=== PATIENT | female | born 1935 | race Caucasian/White ===

== ENCOUNTER 2019-10-01 16:09 | Observation (INO) ==
[2019-10-01 20:12] LABS: Basophils % 0.4 %; Hematocrit 29.8 % (35.3-44.9); Hemoglobin 9.9 g/dL (11.5-15.4); Immature Granulocytes % 0.6 % (0-4); Lymphocytes # 0.6 K/mcL (0.6-4.6); Lymphocytes % 13.2 %; Mean Corpuscular HGB Conc 33.2 g/dL (31.6-35.5); Mean Corpuscular Hemoglobin 31.4 pg (28.0-33.3); Mean Corpuscular Volume 94.6 fL (83.0-100.0); Mean Platelet Volume 9.3 fL (9.4-12.4); Monocytes # 0.5 K/mcL (0.0-1.3); Monocytes % 10.5 %; Neutrophils # 3.7 K/mcL (1.6-8.9); Platelet Count 146 K/mcL (140-400); Red Blood Count 3.15 M/mcL (3.82-4.97); Segmented Neutrophils % 75.3 %; White Blood Count 4.9 K/mcL (4.3-11.1)
[2019-10-01 20:22] LABS: BUN/Creatinine Ratio 33 (6-26); Blood Urea Nitrogen 19 mg/dL (8-23); Calcium 9.1 mg/dL (8.6-10.3); Carbon Dioxide 21 mEq/L (23-29); Chloride 104 mEq/L (98-107); Glucose 45 mg/dL (70-105); Osmolality,Calculated 277 (280-300); Potassium 4.3 mEq/L (3.5-5.1); Sodium 134 mEq/L (136-145); eGFR For African Americans > 60 (> 60); eGFR For Non-African Americans > 60 (> 60)
[2019-10-01 20:32] LABS: INR 1.2; Prothrombin Time 13.3 Seconds (9.4-12.1)
[2019-10-01] MEDS ORDERED: *HR* OxyCODONE Immed Rel 5 MG TABLET PO PRN (20:35)
[2019-10-01] MEDS ORDERED: Acetaminophen 325 MG TABLET PO PRN (20:35)
[2019-10-01] MEDS ORDERED: Naloxone 0.4 MG/ML INJ IVP PRN (20:35)
[2019-10-01] MEDS ORDERED: Ringers Solution, Lactated 1,000 ML IVC SCH (20:45)
[2019-10-02 05:09] LABS: % Iron Saturation 8 % (15-50); Iron 24 mcg/dL (50-170); Transferrin 215 mg/dL (203-362)
[2019-10-02 05:26] LABS: Ferritin 174 ng/mL (10-120)
[2019-10-02] MEDS ORDERED: *HR* Heparin 5,000 UNIT/ML VIAL SQ SCH (06:00)
[2019-10-02] MEDS ORDERED: Cholecalciferol (D-3) 1,000 UNIT (25MCG) TABLET PO SCH (14:30)
[2019-10-02 15:43] VITALS: BP 94/60
[2019-10-02] MEDS ORDERED: Famotidine 20 MG TABLET PO SCH (16:30)
== END 2019-10-02 18:00 | disposition home or self-care (01) ==
LOC: EMEROOARM 16:09 → 3NENU 16:09 → SUATTDRO 20:12 → 3NENU 20:52
PROVIDERS: ADMIT Internal Medicine; ATTEND Internal Medicine